=== PATIENT | male | born 1960 | race Caucasian/White ===

== ENCOUNTER 2018-01-26 14:15 | Inpatient (IN) | payer MEDICARE ==
[~2018-01-26] VITALS: Ht 175.3 cm; Wt 84.8 kg
[2018-01-26] MEDS ORDERED: PANT40TA4 PO (14:45)
[2018-01-26] MEDS ORDERED: DIPH25CA6 PO (14:45)
[2018-01-26] MEDS ORDERED: TEMA15CA PO (14:45)
[2018-01-26] MEDS ORDERED: LORA2VIA6 IM (14:45)
[2018-01-26] MEDS ORDERED: ENOX40DI SQ (14:45)
[2018-01-26] MEDS ORDERED: ACET650S11 RC (14:45)
[2018-01-26] MEDS ORDERED: NITR0.4T48 SL (14:45)
[2018-01-26] MEDS ORDERED: ACET-868 PO (14:45)
[2018-01-26] MEDS ORDERED: BISA10SU8 RC (14:45)
[2018-01-26] MEDS ORDERED: LORA0.5T PO (14:45)
[2018-01-26] MEDS ORDERED: ONDA4TAB5 PO (14:45)
[2018-01-26] MEDS ORDERED: QUET400T PO (14:45)
[2018-01-26] MEDS ORDERED: [UNRECOGNIZED DRUG - CODE] IVP (14:45)
[2018-01-26] MEDS ORDERED: ALBU1.257 IH (14:45)
[2018-01-26] MEDS ORDERED: IPRA0.2S9 IH (14:45)
[2018-01-26] MEDS ORDERED: BENZ1TAB7 PO (14:45)
[2018-01-26] MEDS ORDERED: NATE60TA PO (14:45)
[2018-01-26] MEDS ORDERED: SENN1TAB33 PO (14:45)
[2018-01-26] MEDS ORDERED: HALO5TAB8 PO (14:45)
[2018-01-26] MEDS ORDERED: CLON0.1T PO (14:45)
[2018-01-26] MEDS ORDERED: DIPH25TA62 PO (14:45)
[2018-01-26] MEDS ORDERED: ALBUTEROL HALF STRENGTH 1.25 MG/3 ML VIAL.NEB IH PRN (15:30)
[2018-01-26] MEDS ORDERED: IPRATROPIUM NEB FS 0.5 MG/2.5 ML AMPUL.NEB IH PRN (15:30)
[2018-01-26] MEDS ORDERED: CLONIDINE HCL 0.1 MG TABLET PO PRN (15:30)
[2018-01-26] MEDS ORDERED: clonazePAM 0.5 MG TABLET PO SCH (15:30)
[2018-01-26] MEDS ORDERED: MAG HYDROX/AL HYDROX/SIMETH 30 ML UDC PO PRN (15:30)
[2018-01-26] MEDS ORDERED: MAGNESIUM HYDROXIDE 30 ML UDC PO PRN (15:30)
[2018-01-26 16:00] VITALS: BP 144/83
--- NOTE | 2018-01-26 16:03 | NUR ---
Admitted a 57 years old male from [facility] on 5150 for GD.Mother reported that pt.is experiencing a psychotic episode and not sleeping all night. Mother doesn't feel safe having pt. to return home. Pt. arrived in the unit via an ambulance and transported via a gurney. Pt. is guarded upon approached, paranoid, suspicious, refused to sign the admission papers and refused skin assessment. Pt. is uncooperative on the admission process, not answering to questions being asked. Called Viji Cardenas at [phone] and she gave me some information regarding the pt. Dr. Parra made aware of the admission and gave orders. Dr. Raza made aware of the admission and reconciled the meds. Psychiatrist gave an order for 1:1 sitter.
[2018-01-26] MEDS: SENNOSIDES/DOCUSATE SODIUM 1 TAB TABLET PO SCH (17:00)
[2018-01-26] MEDS: PANTOPRAZOLE 40 MG TABLET.DR PO SCH (17:00)
[2018-01-26] MEDS: NATEGLINIDE 60 MG TABLET PO SCH (17:00)
[2018-01-26] MEDS ORDERED: ONDANSETRON 4 MG TAB.RAPDIS PO PRN (17:30)
[2018-01-26] MEDS ORDERED: diphenhydrAMINE HCL 25 MG CAPSULE PO PRN (17:30)
[2018-01-26 20:00] VITALS: BP 156/84
--- NOTE | 2018-01-26 23:15 | NUR ---
@ 0718, temazepam 1 mg tab po given for sleep.
[2018-01-26] MEDS: TEMAZEPAM 7.5 MG CAPSULE PO PRN (23:18)
[2018-01-27] MEDS: clonazePAM 0.5 MG TABLET PO PRN ×3 (01:21→20:14)
--- NOTE | 2018-01-27 01:22 | NUR ---
Clonazepam 1 mg tab po given, awake, unable to go back to sleep.
--- NOTE | 2018-01-27 05:35 | NUR ---
PATIENT WOKE UP AT THIS TIME, ASKED FOR 2 JELLO, NOTED PATIENT SMILING ALONE. NO AGGRESSIVE BEHAVIOR NOTED.
--- NOTE | 2018-01-27 07:18 | NUR ---
PT. IS CALM, COOPERATIVE, POLITE, FOLLOW DIRECTION, NO AGITATION NOTED AND 1:1 DISCONTINUED.
[2018-01-27 07:33] LABS: BASOPHILS % (AUTO) 0.5 % (0.0-2.0); EOSINOPHILS # (AUTO) 0.2 /CMM (0.0-0.7); EOSINOPHILS % (AUTO) 2.4 % (0.0-6.0); HEMATOCRIT 46 % (39-51); HEMOGLOBIN 15.5 g/dL (13.5-17.5); LYMPHOCYTES # (AUTO) 1.6 /CMM (0.8-4.8); LYMPHOCYTES % (AUTO) 18.2 % (20.0-44.0); MEAN CORPUSCULAR HEMOGLOBIN 32 PG (26.0-33.0); MEAN CORPUSCULAR HGB CONC 34 g/dl (31.0-36.0); MEAN CORPUSCULAR VOLUME 94 fL (80-96); MONOCYTES # (AUTO) 0.8 /CMM (0.1-1.30); MONOCYTES % (AUTO) 9.3 % (2.0-12.0); NEUTROPHILS % (AUTO) 69.6 % (43.0-81.0); PLATELET COUNT (AUTO) 179 /CMM (150-450); RDW COEFFICIENT OF VARIATION 13.3 (11.5-15.0); RED BLOOD CELL COUNT(AUTO) 4.89 MIL/uL (4.5-6.0); WHITE BLOOD COUNT (AUTO) 8.7 K/uL (4.3-11.0)
[2018-01-27 07:37] LABS: CHOLESTEROL 153 mg/dL (<200); HDL CHOLESTEROL 41 mg/dL (40-60); LDL 99 mg/dL (0-99); TRIGLYCERIDES 139 mg/dL (30-150)
[2018-01-27 07:55] LABS: ALBUMIN 3.3 g/dL (3.4-5.0); BILIRUBIN,TOTAL 1.7 mg/dL (0.2-1.0); CALCIUM, SERUM 9.3 mg/dL (8.5-10.1); CREATININE 1.5 mg/dL (0.6-1.3); MAGNESIUM 2.1 mg/dL (1.8-2.4); PHOSPHORUS 2.7 mg/dL (2.5-4.9); POTASSIUM 3.8 mmol/L (3.5-5.1); TOTAL PROTEIN, SERUM 7.1 g/dL (6.4-8.2)
[2018-01-27 08:00] VITALS: BP 158/78
[2018-01-27] MEDS: SENNOSIDES/DOCUSATE SODIUM 1 TAB TABLET PO SCH ×2 (08:21→18:32)
[2018-01-27] MEDS: PANTOPRAZOLE 40 MG TABLET.DR PO SCH (08:21)
[2018-01-27] MEDS: NATEGLINIDE 60 MG TABLET PO SCH ×3 (08:21→18:32)
[2018-01-27] MEDS: LISINOPRIL (10MG) 10 MG TABLET PO SCH (15:18)
[2018-01-27] MEDS: BENZTROPINE MESYLATE (1 MG) 1 MG TABLET PO SCH ×2 (15:18→18:31)
[2018-01-27] MEDS: HALOPERIDOL 5 MG TABLET PO SCH ×2 (15:19→18:32)
[2018-01-27 16:00] VITALS: BP 140/77
[2018-01-27 20:00] VITALS: BP 150/86
--- NOTE | 2018-01-27 20:14 | NUR ---
PATIENT AWAKE, ALERT, ANXIOUS, REQUESTING FOR HIS KLONOPIN, 1 MG TAB WAS ADMINISTERED. WILL MONITOR.
[2018-01-27] MEDS: TEMAZEPAM 7.5 MG CAPSULE PO PRN (23:53)
--- NOTE | 2018-01-27 23:53 | NUR ---
JUST WOKE UP FROM SLEEP, UNABLE TO GO BACK AGAIN, TEMAZEPAM 15 MG CAP PO GIVEN.
[2018-01-28 08:00] VITALS: BP 142/81
[2018-01-28] MEDS: PANTOPRAZOLE 40 MG TABLET.DR PO SCH (08:20)
[2018-01-28] MEDS: HALOPERIDOL 5 MG TABLET PO SCH ×2 (08:20→17:13)
[2018-01-28] MEDS: NATEGLINIDE 60 MG TABLET PO SCH ×3 (08:20→17:13)
[2018-01-28] MEDS: SENNOSIDES/DOCUSATE SODIUM 1 TAB TABLET PO SCH ×2 (08:20→17:13)
[2018-01-28] MEDS: BENZTROPINE MESYLATE (1 MG) 1 MG TABLET PO SCH ×2 (08:20→17:13)
[2018-01-28] MEDS: LISINOPRIL (10MG) 10 MG TABLET PO SCH (08:21)
[2018-01-28 16:04] VITALS: BP 130/82
[2018-01-28 19:42] VITALS: BP 162/90
[2018-01-28] MEDS: TEMAZEPAM 7.5 MG CAPSULE PO PRN (21:07)
--- NOTE | 2018-01-28 21:07 | NUR ---
[id number]: GAVE RESTORIL 15 MG PO DUE TO INSOMNIA UPON PT REQUEST AND WILL CONTINUE TO MONITOR FOR EFFECTIVENESS OF MEDICATION
[2018-01-29 08:00] VITALS: BP 143/93
[2018-01-29] MEDS: BENZTROPINE MESYLATE (1 MG) 1 MG TABLET PO SCH ×2 (08:09→16:26)
[2018-01-29] MEDS: NATEGLINIDE 60 MG TABLET PO SCH ×3 (08:09→16:26)
[2018-01-29] MEDS: HALOPERIDOL 5 MG TABLET PO SCH ×2 (08:10→16:26)
[2018-01-29] MEDS: LISINOPRIL (10MG) 10 MG TABLET PO SCH (08:10)
[2018-01-29] MEDS: PANTOPRAZOLE 40 MG TABLET.DR PO SCH (08:11)
[2018-01-29] MEDS: SENNOSIDES/DOCUSATE SODIUM 1 TAB TABLET PO SCH ×2 (08:11→16:26)
--- NOTE | 2018-01-29 14:09 | NUR ---
Initial Discharge Plan: Pt resides in the family home; [address] [facility] [address] with his mother (Viji Cardenas), sister (Apple) and brother (Noah). Pts telephone # is . Pt would like to move to [facility] and reported having the financial means. Pt however stated that upon discharge he would like to return to his mother's home to retrieve his belongings. SW will follow up with pts family to ensure pt is safely and properly discharged.
[2018-01-29 16:00] VITALS: BP 130/86
[2018-01-29 19:41] VITALS: BP 160/100
[2018-01-29 20:30] VITALS: BP 151/86
[2018-01-29] MEDS: TEMAZEPAM 7.5 MG CAPSULE PO PRN (21:25)
[2018-01-30] MEDS: clonazePAM 0.5 MG TABLET PO PRN ×2 (01:10→22:49)
[2018-01-30 08:00] VITALS: BP 145/89
[2018-01-30] MEDS: SENNOSIDES/DOCUSATE SODIUM 1 TAB TABLET PO SCH ×2 (08:12→16:32)
[2018-01-30] MEDS: HALOPERIDOL 5 MG TABLET PO SCH ×2 (08:13→16:32)
[2018-01-30] MEDS: PANTOPRAZOLE 40 MG TABLET.DR PO SCH (08:13)
[2018-01-30] MEDS: NATEGLINIDE 60 MG TABLET PO SCH ×3 (08:13→16:32)
[2018-01-30] MEDS: BENZTROPINE MESYLATE (1 MG) 1 MG TABLET PO SCH ×2 (08:13→16:32)
[2018-01-30] MEDS: LISINOPRIL (10MG) 10 MG TABLET PO SCH (08:14)
--- NOTE | 2018-01-30 15:46 | NUR ---
Discharge Planning: KISHOR contacted Viji Cardenas, pts mother for discharge planning purposes. SW was unable to speak to anyone; however a message was left asking for a call back. KISHOR will follow up with pts family as this will be where pt will be discharging, per pt report.
[2018-01-30 16:04] VITALS: BP 152/91
[2018-01-30 20:36] VITALS: BP 149/90
[2018-01-30] MEDS: TEMAZEPAM 7.5 MG CAPSULE PO PRN (21:53)
--- NOTE | 2018-01-30 22:50 | NUR ---
GPS RN NOTES: PATIENT NOTED TO BE YELLING AND SCREAMING AT STAFF. OBSERVE TO BE ANXIOUS THIS TIME. KLONOPIN 1 MG GIVEN PRN ORDER. WILL CONTINUE TO MONITOR PATIENT FOR MOOD, AND BEHAVIOR.
[2018-01-31] MEDS: PANTOPRAZOLE 40 MG TABLET.DR PO SCH (07:34)
[2018-01-31 08:00] VITALS: BP 160/91
[2018-01-31] MEDS: BENZTROPINE MESYLATE (1 MG) 1 MG TABLET PO SCH ×2 (08:41→16:35)
[2018-01-31] MEDS: HALOPERIDOL 5 MG TABLET PO SCH ×2 (08:41→16:35)
[2018-01-31] MEDS: LISINOPRIL (10MG) 10 MG TABLET PO SCH (08:42)
[2018-01-31] MEDS: SENNOSIDES/DOCUSATE SODIUM 1 TAB TABLET PO SCH ×2 (08:42→16:35)
[2018-01-31] MEDS: NATEGLINIDE 60 MG TABLET PO SCH ×3 (08:43→16:35)
[2018-01-31 16:00] VITALS: BP 143/90
--- NOTE | 2018-01-31 16:17 | NUR ---
Discharge Planning: SW spoke to pts mother Viji Cardenas for discharge planning purposes. SW inquired about pts return home once he is ready to discharge. Per pts mother, He could return "as long as he takes his medicine." SW inquired if there was anyone who can pick pt up once he discharges. Per mother, it would be difficult to get transportation however she would follow up with pts siblings (who live in the home). SW discussed siblings picking him up from the hospital once he is ready to discharge however, pt became angry and stated, "no, no, I don't want them to pick me up." SW will follow up.
[2018-01-31] MEDS: clonazePAM 0.5 MG TABLET PO PRN (17:07)
--- NOTE | 2018-01-31 17:07 | NUR ---
PATIENT HEARING VOICES AND GETTING ANXIOUS. CLONAZEPAM 1 MG GIVEN.
[2018-01-31 19:49] VITALS: BP 132/87
[2018-01-31] MEDS: ACETAMINOPHEN 325 MG TABLET PO PRN (21:43)
[2018-01-31] MEDS: TEMAZEPAM 7.5 MG CAPSULE PO PRN (22:24)
[2018-02-01] MEDS: clonazePAM 0.5 MG TABLET PO PRN ×2 (05:16→20:57)
--- NOTE | 2018-02-01 05:17 | NUR ---
GPS RN NOTES PATIENT C/O, ANXIOUS, REQUESTING FOR HIS KLONOPIN, 1 MG PO PRN WAS ADMINISTERED. WILL CONTINUE TO MONITOR.
[2018-02-01 08:00] VITALS: BP 162/92
[2018-02-01] MEDS: LISINOPRIL (10MG) 10 MG TABLET PO SCH (08:21)
[2018-02-01] MEDS: PANTOPRAZOLE 40 MG TABLET.DR PO SCH (08:22)
[2018-02-01] MEDS: SENNOSIDES/DOCUSATE SODIUM 1 TAB TABLET PO SCH ×2 (08:22→16:10)
[2018-02-01] MEDS: BENZTROPINE MESYLATE (1 MG) 1 MG TABLET PO SCH ×2 (08:22→16:10)
[2018-02-01] MEDS: HALOPERIDOL 5 MG TABLET PO SCH ×2 (08:22→16:10)
[2018-02-01] MEDS: NATEGLINIDE 60 MG TABLET PO SCH ×3 (08:22→16:10)
[2018-02-01 16:00] VITALS: BP 137/75
[2018-02-01 20:00] VITALS: BP 159/96
[2018-02-01] MEDS: TEMAZEPAM 7.5 MG CAPSULE PO PRN (21:39)
[2018-02-02] MEDS: clonazePAM 0.5 MG TABLET PO PRN ×2 (03:00→20:29)
[2018-02-02 07:16] LABS: ALBUMIN 3.5 g/dL (3.4-5.0); BILIRUBIN,DIRECT 0.2 mg/dL (0.0-0.2); BILIRUBIN,TOTAL 1.1 mg/dL (0.2-1.0); CALCIUM, SERUM 8.9 mg/dL (8.5-10.1); CREATININE 1.3 mg/dL (0.6-1.3); TOTAL PROTEIN, SERUM 7.2 g/dL (6.4-8.2)
[2018-02-02 07:18] LABS: BASOPHILS # (AUTO) 0.1 /CMM (0.0-0.2); BASOPHILS % (AUTO) 0.6 % (0.0-2.0); EOSINOPHILS # (AUTO) 0.1 /CMM (0.0-0.7); EOSINOPHILS % (AUTO) 0.8 % (0.0-6.0); HEMATOCRIT 45 % (39-51); HEMOGLOBIN 15.1 g/dL (13.5-17.5); LYMPHOCYTES # (AUTO) 1.8 /CMM (0.8-4.8); LYMPHOCYTES % (AUTO) 20.1 % (20.0-44.0); MEAN CORPUSCULAR HEMOGLOBIN 31 PG (26.0-33.0); MEAN CORPUSCULAR HGB CONC 34 g/dl (31.0-36.0); MEAN CORPUSCULAR VOLUME 93 fL (80-96); MONOCYTES # (AUTO) 1.1 /CMM (0.1-1.30); MONOCYTES % (AUTO) 11.9 % (2.0-12.0); NEUTROPHILS % (AUTO) 66.6 % (43.0-81.0); PLATELET COUNT (AUTO) 237 /CMM (150-450); RDW COEFFICIENT OF VARIATION 13.6 (11.5-15.0); RED BLOOD CELL COUNT(AUTO) 4.83 MIL/uL (4.5-6.0); WHITE BLOOD COUNT (AUTO) 8.9 K/uL (4.3-11.0)
[2018-02-02] MEDS: NATEGLINIDE 60 MG TABLET PO SCH ×3 (08:02→16:10)
[2018-02-02] MEDS: BENZTROPINE MESYLATE (1 MG) 1 MG TABLET PO SCH ×2 (08:02→16:10)
[2018-02-02] MEDS: SENNOSIDES/DOCUSATE SODIUM 1 TAB TABLET PO SCH ×2 (08:02→16:10)
[2018-02-02] MEDS: PANTOPRAZOLE 40 MG TABLET.DR PO SCH (08:02)
[2018-02-02] MEDS: LISINOPRIL (10MG) 10 MG TABLET PO SCH (08:03)
[2018-02-02] MEDS: HALOPERIDOL 5 MG TABLET PO SCH ×2 (08:05→16:10)
[2018-02-02 08:20] VITALS: BP 129/76
[2018-02-02 16:00] VITALS: BP 118/73
--- NOTE | 2018-02-02 16:01 | NUR ---
Discharge Planning: SW left a voicemail for patient's mother Viji Cardenas, pts mother . SW provided her direct contact information in the voicemail.
[2018-02-02 20:00] VITALS: BP 125/78
[2018-02-02] MEDS: diphenhydrAMINE HCL 25 MG CAPSULE PO PRN (20:29)
[2018-02-03] MEDS: TEMAZEPAM 7.5 MG CAPSULE PO PRN ×2 (00:43→21:50)
[2018-02-03] MEDS: clonazePAM 0.5 MG TABLET PO PRN (03:45)
[2018-02-03] MEDS: diphenhydrAMINE HCL 25 MG CAPSULE PO PRN (06:52)
[2018-02-03 08:00] VITALS: BP 139/77
[2018-02-03] MEDS: PANTOPRAZOLE 40 MG TABLET.DR PO SCH (08:46)
[2018-02-03] MEDS: BENZTROPINE MESYLATE (1 MG) 1 MG TABLET PO SCH ×2 (08:46→16:32)
[2018-02-03] MEDS: SENNOSIDES/DOCUSATE SODIUM 1 TAB TABLET PO SCH ×2 (08:46→16:32)
[2018-02-03] MEDS: HALOPERIDOL 5 MG TABLET PO SCH ×2 (08:47→16:32)
[2018-02-03] MEDS: NATEGLINIDE 60 MG TABLET PO SCH ×3 (08:47→16:32)
[2018-02-03] MEDS: LISINOPRIL (10MG) 10 MG TABLET PO SCH (08:47)
[2018-02-03] MEDS: DIVALPROEX SODIUM 250 MG TABLET.DR PO SCH ×3 (11:52→21:50)
[2018-02-03 16:00] VITALS: BP 109/67
[2018-02-03 20:00] VITALS: BP 122/69
[2018-02-04] MEDS: NATEGLINIDE 60 MG TABLET PO SCH ×3 (08:07→16:56)
[2018-02-04] MEDS: SENNOSIDES/DOCUSATE SODIUM 1 TAB TABLET PO SCH ×2 (08:07→16:56)
[2018-02-04] MEDS: LISINOPRIL (10MG) 10 MG TABLET PO SCH (08:07)
[2018-02-04] MEDS: HALOPERIDOL 5 MG TABLET PO SCH ×2 (08:07→16:57)
[2018-02-04] MEDS: BENZTROPINE MESYLATE (1 MG) 1 MG TABLET PO SCH ×2 (08:07→16:56)
[2018-02-04] MEDS: PANTOPRAZOLE 40 MG TABLET.DR PO SCH (08:07)
[2018-02-04] MEDS: DIVALPROEX SODIUM 250 MG TABLET.DR PO SCH ×2 (08:08→14:26)
[2018-02-04 08:15] VITALS: BP 141/77
[2018-02-04 16:07] VITALS: BP 149/80
[2018-02-04 19:49] VITALS: BP 156/87
[2018-02-04] MEDS ORDERED: DIVALPROEX SODIUM 500 MG TABLET.DR PO SCH (20:00)
[2018-02-04] MEDS: ACETAMINOPHEN 325 MG TABLET PO PRN (20:08)
[2018-02-04] MEDS: TEMAZEPAM 7.5 MG CAPSULE PO PRN (21:22)
[2018-02-04 23:00] VITALS: BP 137/78
--- NOTE | 2018-02-05 02:36 | NUR ---
GPS RN NOTES PT. REFUSED WEEKLY SKIN REASSESSMENT PICTURES , ENCOURAGED FOR SKIN REASSESSMENT ,EXPLIANED RISKS AND BENEFITS, PT. STILL REFUSED .
[2018-02-05 08:00] VITALS: BP 130/64
--- NOTE | 2018-02-05 08:35 | NUR ---
Discharge Planning: KISHOR spoke with patient's mother Viji Cardenas, . Viji stated that she will be able to pick patient up today at 2pm. Viji stated that she was in agreement with the discharge.
[2018-02-05] MEDS: SENNOSIDES/DOCUSATE SODIUM 1 TAB TABLET PO SCH (08:47)
[2018-02-05] MEDS: PANTOPRAZOLE 40 MG TABLET.DR PO SCH (08:47)
[2018-02-05 08:48] VITALS: BP 130/64
[2018-02-05] MEDS: HALOPERIDOL 5 MG TABLET PO SCH (08:48)
[2018-02-05] MEDS: NATEGLINIDE 60 MG TABLET PO SCH ×2 (08:48→13:25)
[2018-02-05] MEDS: DIVALPROEX SODIUM 250 MG TABLET.DR PO SCH ×2 (08:48→13:25)
[2018-02-05] MEDS: LISINOPRIL (10MG) 10 MG TABLET PO SCH (08:48)
[2018-02-05] MEDS: BENZTROPINE MESYLATE (1 MG) 1 MG TABLET PO SCH (08:49)
--- NOTE | 2018-02-05 11:06 | NUR ---
Discharge Note: Patient will be discharged home to [address] [facility]. [facility] [address]. Patient resides with mother Viji Cardenas [phone] and his siblings. Patient and his mother + family are in agreement with the discharge plan. Patients mother Mary will be picking patient up in her private vehicle. Upon discharge, patient is calm and cooperative. Patient denies suicidal and homicidal ideation. Patient denies visual and auditory hallucinations. Patient will see his psychiatrist Dr. Delatorre [address] [place] [address] [phone] on February 15 at 11:30am. Patient was also encouraged to follow up with his edge cutting machine operator, Dr. Srinivasan [address] [facility], [place] [address] [phone]. This was provided to patient.
--- NOTE | 2018-02-05 14:21 | NUR ---
GPS RN NOTE: PATIENT DISCHARGE HOME WITH HIS MOM TAIWO TANG TO [address] [place] [address] . PT IN STABLE CONDITION NO S/S DISTRESS NOTED, PT AMBULATORY STEADY GAIT , A/O X3 , COOPERATIVE COMPLIANT WITH MEDICATIONS AND TX, DENIES SI/HI, NO C/O PAIN OF DISCOMFORT, VSS WNL. DR GITA WHITTINGTON HOLD, WITH PRESCRIPTIONS EXPLAIN AND GIVEN TO PT AND MOM. Panchito MOORE NOTIFIED MEDICATIONS RECONCILIATION DONE AND GIVEN TO PT. PT INSTRUCTED TO FOLLOW UP WITH MD, TO COMPLIANT WITH MEDICATIONS AND TX. ALL BELONGINGS RETURNED TO PT.
== END 2018-02-05 14:10 | disposition home or self-care (01) | DRG 885 ==
LOC: GPS 14:15
PROVIDERS: ADMIT Psychiatry & Neurology Psychiatry; ATTEND Internal Medicine
DX: F25.0 Schizoaffective disorder, bipolar type (principal); N18.3 Chronic kidney disease, stage 3 (moderate); E11.22 Type 2 diabetes mellitus with diabetic chronic kidney disease; F23 Brief psychotic disorder; I12.9 Hypertensive chronic kidney disease with stage 1 through stage 4 chronic kidney disease, or unspecified chronic kidney disease; J44.9 Chronic obstructive pulmonary disease, unspecified; Z79.899 Other long term (current) drug therapy
CPT/HCPCS: 36415; 80048-TC; 80053-TC; 80061-TC; 80076-TC; 83735-TC; 84100-TC; 85025-TC; Q0163

== ENCOUNTER 2018-03-02 01:49 | Inpatient (IN) | payer MEDICARE ==
[~2018-03-02] VITALS: Ht 182.9 cm; Wt 80.7 kg
[~2018-03-02 01:49] MED LIST: ACET-868 PO; ACET650S11 RC; ALBU1.257 IH; BISA10SU8 RC; CLON0.1T PO; DIPH25CA6 PO; DIPH25TA62 PO; ENOX40DI SQ; IPRA0.2S9 IH; NATE60TA PO; NITR0.4T48 SL; ONDA4TAB5 PO; PANT40TA4 PO; SENN1TAB33 PO; [UNRECOGNIZED DRUG - CODE] IVP
[2018-03-02 04:15] VITALS: BP 121/74
--- NOTE | 2018-03-02 04:20 | NUR ---
ADMISSION NOTES ADMITTED THIS 57 Y/O MALE PATIENT FROM [facility] . PT IS ON 5150 HOLD FOR DTO. PER HOLD PT WAS STATING THAT HE WAS GOING TO KILL HIS SISTER, WAS HAVING AUDITORY AND VISUAL HALLUCINATIONS. PT HAS PREVIOUS PSYCHIATRIC HOSPITALIZATIONS. UPON FACE TO FACE ASSESSMENT PATIENT IS A&O X3, PARANOID, SUSPICIOUS, ANXIOUS. ADMITTING PSYCH DX OF SCHIZOPRENIA. MEDICAL DX OF DM. NO SOB, RESPIRATION EVEN AND UNLABORED, V/S WNL, NO ACUTE DISTRESS NOTED. MD AWARE AND NOTIFIED OF THE ADMISSION. SKIN ASSESSMENT DONE. PICTURES TAKEN. WOUND CONSULT TRIGGERED. ORIENT TO UNIT POLICY. ALL NEEDS ATTENDED AND ANTICIPATED. KEPT CLEAN AND DRY AT ALL TIMES. WILL CONTINUE TO MONITOR FOR Q15 MINS FOR SAFETY AND BEHAVIOR.
[2018-03-02] MEDS ORDERED: MAGNESIUM HYDROXIDE 30 ML UDC PO PRN (04:30)
[2018-03-02] MEDS ORDERED: ACETAMINOPHEN 325 MG TABLET PO PRN ×2 (04:30→12:30)
[2018-03-02] MEDS ORDERED: MAG HYDROX/AL HYDROX/SIMETH 30 ML UDC PO PRN (04:30)
[2018-03-02 05:04] VITALS: BP 121/74
--- NOTE | 2018-03-02 06:16 | NUR ---
RICHARD ATKINS (PUBLISHING MANAGER) TO RECONCILE THE MEDS. AWAITING FOR CALLBACK. WILL ENDORSE TO NEXT SHIFT NURSE FOR FOLLOW UP.
[2018-03-02 08:31] VITALS: BP 136/78
--- NOTE | 2018-03-02 10:26 | NUR ---
WOUND CARE CONSULT: JERRICA PRUITT HERE TO SEE PT. DEFER TO PLASTICS SURGICAL TEAM. CURRENT RAHEL SCORE IS 22.
--- NOTE | 2018-03-02 11:52 | NUR ---
Initial Discharge Note: Patient lives at home with his mother and sister [address] [place] [address]. . Patient would like to return home upon discharge. SW attempted to contact patient's mother Kenji Cardenas . However, she was unavailable. KISHOR left her a voicemail with her direct contact information. KISHOR will help form a safe and proper discharge.
[2018-03-02] MEDS ORDERED: INSULIN REGULAR, HUMAN 100 UNIT/ML 3 ML VIAL SQ PRN (12:30)
[2018-03-02] MEDS ORDERED: ALBUTEROL HALF STRENGTH 1.25 MG/3 ML VIAL.NEB IH PRN (12:30)
[2018-03-02] MEDS ORDERED: *INSULIN REGULAR(HUMULIN R)HUM 100 UNIT/ML VIAL SQ PRN (12:30)
[2018-03-02] MEDS ORDERED: BISACODYL SUPP (10 MG) 10 MG/SUPP.RECT SUPP.RECT RC PRN (12:30)
[2018-03-02] MEDS ORDERED: CLONIDINE HCL 0.1 MG TABLET PO PRN (12:30)
[2018-03-02] MEDS ORDERED: DEXTROSE 50%-WATER 50 ML DISP.SYRIN IV PRN (12:30)
[2018-03-02] MEDS ORDERED: diphenhydrAMINE HCL 25 MG CAPSULE PO PRN (12:30)
[2018-03-02] MEDS ORDERED: NITROGLYCERIN 0.4 MG/TAB BOTTLE SL PRN (12:30)
[2018-03-02] MEDS ORDERED: IPRATROPIUM NEB FS 0.5 MG/2.5 ML AMPUL.NEB IH PRN (12:30)
[2018-03-02] MEDS: NEOMY SULF/BACITRAC ZN/POLY 15 GM TUBE TP SCH (12:37)
[2018-03-02] MEDS ORDERED: ONDANSETRON 4 MG TAB.RAPDIS PO PRN (13:00)
[2018-03-02] MEDS: NATEGLINIDE 60 MG TABLET PO SCH ×2 (13:00→16:32)
--- NOTE | 2018-03-02 15:57 | NUR ---
RN-CO: Verified with Dr Parra if he is aware of Mr Ronald's admission. Dr said he is not aware. He ordered to transfer care to Dr Deng.
--- NOTE | 2018-03-02 16:10 | NUR ---
RN-CO: DR Deng accepted the care.
[2018-03-02] MEDS: SENNOSIDES/DOCUSATE SODIUM 1 TAB TABLET PO SCH (16:32)
[2018-03-02 16:40] VITALS: BP 131/81
[2018-03-02] MEDS: BLOOD SUGAR DIAGNOSTIC 1 EACH STRIP VI SCH ×2 (16:43→21:17)
--- NOTE | 2018-03-02 16:43 | NUR ---
[id number]: BLOOD SUGAR IS 122 MG/DL AND NO INSULIN COVERAGE REQUIRED
[2018-03-02 20:00] VITALS: BP 122/60
[2018-03-02] MEDS: DIVALPROEX SODIUM 500 MG TABLET.DR PO SCH (20:41)
[2018-03-02] MEDS: HALOPERIDOL 5 MG TABLET PO SCH (20:42)
[2018-03-03] MEDS: TEMAZEPAM 7.5 MG CAPSULE PO PRN (01:21)
[2018-03-03 07:22] LABS: BASOPHILS % (AUTO) 0.4 % (0.0-2.0); HEMATOCRIT 40 % (39-51); HEMOGLOBIN 13.6 g/dL (13.5-17.5); LYMPHOCYTES % (AUTO) 23.8 % (20.0-44.0); MEAN CORPUSCULAR HGB CONC 34 g/dl (31.0-36.0); MEAN CORPUSCULAR VOLUME 93 fL (80-96); MONOCYTES # (AUTO) 0.9 /CMM (0.1-1.30); MONOCYTES % (AUTO) 10.8 % (2.0-12.0); NEUTROPHILS # (AUTO) 5.1 /CMM (1.8-8.9); PLATELET COUNT (AUTO) 219 /CMM (150-450); RDW COEFFICIENT OF VARIATION 13.9 (11.5-15.0); RED BLOOD CELL COUNT(AUTO) 4.27 MIL/uL (4.5-6.0); WHITE BLOOD COUNT (AUTO) 8.3 K/uL (4.3-11.0)
[2018-03-03 07:33] LABS: ALBUMIN 3.2 g/dL (3.4-5.0); BILIRUBIN,TOTAL 0.9 mg/dL (0.2-1.0); CALCIUM, SERUM 8.6 mg/dL (8.5-10.1); CREATININE 0.9 mg/dL (0.6-1.3); POTASSIUM 3.7 mmol/L (3.5-5.1); TOTAL PROTEIN, SERUM 6.6 g/dL (6.4-8.2)
[2018-03-03 07:40] LABS: CHOLESTEROL 159 mg/dL (<200); HDL CHOLESTEROL 56 mg/dL (40-60); LDL 93 mg/dL (0-99); TRIGLYCERIDES 60 mg/dL (30-150)
[2018-03-03] MEDS: BLOOD SUGAR DIAGNOSTIC 1 EACH STRIP VI SCH ×2 (07:45→12:00)
[2018-03-03 08:00] VITALS: BP 100/68
[2018-03-03] MEDS: SENNOSIDES/DOCUSATE SODIUM 1 TAB TABLET PO SCH ×2 (09:22→16:05)
[2018-03-03] MEDS: HALOPERIDOL 5 MG TABLET PO SCH ×2 (09:23→20:57)
[2018-03-03] MEDS: DIVALPROEX SODIUM 500 MG TABLET.DR PO SCH ×2 (09:23→20:57)
[2018-03-03] MEDS: NATEGLINIDE 60 MG TABLET PO SCH ×3 (09:23→16:05)
[2018-03-03] MEDS: PANTOPRAZOLE 40 MG TABLET.DR PO SCH (09:23)
[2018-03-03] MEDS: NEOMY SULF/BACITRAC ZN/POLY 15 GM TUBE TP SCH (09:27)
[2018-03-03 16:00] VITALS: BP 140/78
[2018-03-03] MEDS ORDERED: BLOOD SUGAR DIAGNOSTIC 1 EACH STRIP VI PRN (17:30)
[2018-03-03 20:00] VITALS: BP 140/81
[2018-03-04] MEDS: TEMAZEPAM 7.5 MG CAPSULE PO PRN (02:09)
[2018-03-04 08:00] VITALS: BP 167/92
[2018-03-04] MEDS: PANTOPRAZOLE 40 MG TABLET.DR PO SCH (08:04)
[2018-03-04] MEDS: HALOPERIDOL 5 MG TABLET PO SCH ×2 (08:26→21:22)
[2018-03-04] MEDS: SENNOSIDES/DOCUSATE SODIUM 1 TAB TABLET PO SCH ×2 (08:26→16:42)
[2018-03-04] MEDS: NATEGLINIDE 60 MG TABLET PO SCH ×3 (08:26→16:42)
[2018-03-04] MEDS: DIVALPROEX SODIUM 500 MG TABLET.DR PO SCH ×2 (08:26→21:23)
[2018-03-04] MEDS: NEOMY SULF/BACITRAC ZN/POLY 15 GM TUBE TP SCH (09:33)
[2018-03-04 16:38] VITALS: BP 154/89
[2018-03-04 20:20] VITALS: BP 133/77
[2018-03-05] MEDS: TEMAZEPAM 7.5 MG CAPSULE PO PRN (00:48)
--- NOTE | 2018-03-05 00:53 | NUR ---
RN GPS NOTES PT. C/O INSOMNIA RESTORIL 7.5 MG PO PRN GIVEN PER PT. REQUEST, WILL CONTINUE TO MONITOR.
[2018-03-05 08:00] VITALS: BP 134/84
[2018-03-05] MEDS: PANTOPRAZOLE 40 MG TABLET.DR PO SCH (08:29)
[2018-03-05] MEDS: NATEGLINIDE 60 MG TABLET PO SCH ×3 (08:29→17:41)
[2018-03-05] MEDS: SENNOSIDES/DOCUSATE SODIUM 1 TAB TABLET PO SCH ×2 (08:29→17:40)
[2018-03-05] MEDS: HALOPERIDOL 5 MG TABLET PO SCH ×2 (08:29→20:48)
[2018-03-05] MEDS: DIVALPROEX SODIUM 500 MG TABLET.DR PO SCH ×2 (08:29→20:47)
[2018-03-05] MEDS: NEOMY SULF/BACITRAC ZN/POLY 15 GM TUBE TP SCH (10:26)
[2018-03-05 16:00] VITALS: BP 147/86
--- NOTE | 2018-03-05 16:15 | NUR ---
Initial Discharge Plan: Pt resides at [address] [facility] [address]; with his mother, Viji and sister, Apple. Upon discharge pt would like to return home, SW followed up with pts mother, Viji for discharge planning purposes however was unable to speak to her; a message was left asking for a callback. KISHOR will follow up to ensure pt is safely and adequately discharged.
[2018-03-05 19:52] VITALS: BP 147/80
[2018-03-06 08:00] VITALS: BP 148/90
[2018-03-06] MEDS: DIVALPROEX SODIUM 500 MG TABLET.DR PO SCH ×2 (08:47→21:16)
[2018-03-06] MEDS: SENNOSIDES/DOCUSATE SODIUM 1 TAB TABLET PO SCH ×2 (08:47→17:05)
[2018-03-06] MEDS: PANTOPRAZOLE 40 MG TABLET.DR PO SCH (08:47)
[2018-03-06] MEDS: HALOPERIDOL 5 MG TABLET PO SCH ×2 (08:48→21:17)
[2018-03-06] MEDS: NATEGLINIDE 60 MG TABLET PO SCH ×3 (08:48→17:05)
[2018-03-06] MEDS: NEOMY SULF/BACITRAC ZN/POLY 15 GM TUBE TP SCH (09:00)
[2018-03-06 16:00] VITALS: BP 158/96
--- NOTE | 2018-03-06 16:38 | NUR ---
Discharge Planning: KISHOR contacted pts mother Viji, for discharge planning purposes. SW left a message asking for a callback. KISHOR will follow up.
--- NOTE | 2018-03-06 16:40 | NUR ---
Discharge Planning: Pt handed SW the hand held phone stating that his sister was on the phone. When SW answered the phone and introduced herself, pts sister stated "He can stay there more days" and hung up. SW will follow up to ensure pt is safely and adequately discharged.
[2018-03-06 20:13] VITALS: BP 125/70
[2018-03-07 08:00] VITALS: BP 133/76
--- NOTE | 2018-03-07 08:20 | NUR ---
Patients brother Adolph Cardenas contacted SW to inform her that brother cannot go home and also stated to SW that pt has refused to talk to him over the phone. SW asked brother if there was any family that could assist with pts discharge planning and brother stated that pt was not cooperative with family therefore, no one was available to assist him. Pts brother mentioned to SW that if discharged to a skilled nursing pt would not go and make his way back home where he cannot stay. SW mentioned to pts brother that she would inform psychiatrist of this information.
--- NOTE | 2018-03-07 08:25 | NUR ---
SW note [place]: Pt informed SW on 03/07/18 at 4:25pm that he was going to kill his brother Adolph Cardenas. SW immediately informed supervisor poultry processing Mary Lou Ibarra and Dr. Bermudez. SW will also be informing pts brother Adolph Cardenas per [place] law.
[2018-03-07] MEDS: NEOMY SULF/BACITRAC ZN/POLY 15 GM TUBE TP SCH (09:00)
[2018-03-07] MEDS: HALOPERIDOL 5 MG TABLET PO SCH ×2 (09:05→21:42)
[2018-03-07] MEDS: PANTOPRAZOLE 40 MG TABLET.DR PO SCH (09:06)
[2018-03-07] MEDS: DIVALPROEX SODIUM 500 MG TABLET.DR PO SCH ×2 (09:06→21:42)
[2018-03-07] MEDS: SENNOSIDES/DOCUSATE SODIUM 1 TAB TABLET PO SCH ×2 (09:06→16:41)
[2018-03-07] MEDS: NATEGLINIDE 60 MG TABLET PO SCH ×3 (09:07→16:41)
[2018-03-07 16:00] VITALS: BP 135/72
--- NOTE | 2018-03-07 16:02 | NUR ---
SW contacted pts motherViji for discharge planning purposes per psychiatrists request.
--- NOTE | 2018-03-07 19:30 | NUR ---
GPS RN NOTE, RECEIVED PATIENT AWAKE AND IN BED, PATIENT HAS NO COMPLAINTS OR S/S OF PAIN AT THIS TIME. PATIENT IS DISPLAYING NO S/S OF APPARENT DISTRESS AT THIS TIME. PATIENT BREATHING IS UNLABORED WITH EQUAL RISE AND FALL OF THE CHEST. PATIENT IS ALERT AND ORIENTED X 3 ON ROOM AIR WITH A SPO2 OF 96%. PATIENT IS COMPLIANT WITH MEDICATION, ANXIOUS AT TIMES, PARANOID, COOPERATIVE, HAS VISUAL HALLUCINATIONS AT TIMES, AND NEEDS REORIENTATION. PATIENT DENIES SUICIDE IDEATIONS AND HOMICIDAL IDEATIONS AT THIS TIME. PATIENT ASSISTED WITH TURNING AND REPOSITIONING Q2HR AND PRN FOR COMFORT AND CIRCULATION. PATIENT HAS NO NEEDS AT THIS TIME. PATIENT EDUCATED ON THE USE OF THE CALL MURILLO. PATIENT SIDE RAILS ARE UP X 2, BED IS LOCKED AND LOW, AND I WILL CONTINUE TO MONITOR THIS PATIENT Q 15 MIN WITH THE HELP OF STAFF.
[2018-03-07 20:00] VITALS: BP 134/82
[2018-03-07] MEDS: clonazePAM 0.5 MG TABLET PO PRN (20:37)
--- NOTE | 2018-03-07 20:37 | NUR ---
GPS RN NOTE, PATIENT HAS A COMPLAINT OF FEELING ANXIOUS AND IS REQUESTING KLONOPIN AT THIS TIME. PATIENT VITAL SIGNS ARE STABLE. GAVE KLONOPIN 0.5MG PO Q4HR PRN ORDERED. WILL REASSESS FOR ANXIETY AND I WILL CONTINUE TO MONITOR THIS PATIENT.
[2018-03-08] MEDS: clonazePAM 0.5 MG TABLET PO PRN (02:19)
[2018-03-08 08:05] VITALS: BP 132/78
[2018-03-08] MEDS: HALOPERIDOL 5 MG TABLET PO SCH ×2 (08:30→21:01)
[2018-03-08] MEDS: PANTOPRAZOLE 40 MG TABLET.DR PO SCH (08:31)
[2018-03-08] MEDS: DIVALPROEX SODIUM 500 MG TABLET.DR PO SCH ×2 (08:31→21:01)
[2018-03-08] MEDS: SENNOSIDES/DOCUSATE SODIUM 1 TAB TABLET PO SCH ×2 (08:31→16:45)
[2018-03-08] MEDS: NATEGLINIDE 60 MG TABLET PO SCH ×3 (08:34→16:45)
[2018-03-08] MEDS: NEOMY SULF/BACITRAC ZN/POLY 15 GM TUBE TP SCH (08:35)
[2018-03-08 16:34] VITALS: BP 124/70
[2018-03-08 20:00] VITALS: BP 113/64
[2018-03-08] MEDS: TEMAZEPAM 7.5 MG CAPSULE PO PRN (21:02)
[2018-03-09] MEDS: clonazePAM 0.5 MG TABLET PO PRN ×3 (00:48→20:37)
--- NOTE | 2018-03-09 00:51 | NUR ---
PATIENT REQUESTED FOR HIS KLONOPIN 0.5 MG, 1 PO GIVEN.
--- NOTE | 2018-03-09 04:45 | NUR ---
KLONOPIN 0.5 MG ATB 1 PO GIVEN PER PATIENT'S REQUEST, FEELING ANXIOUS AND JITTERY.
[2018-03-09 08:00] VITALS: BP 127/85
[2018-03-09] MEDS: SENNOSIDES/DOCUSATE SODIUM 1 TAB TABLET PO SCH ×2 (08:52→16:33)
[2018-03-09] MEDS: DIVALPROEX SODIUM 500 MG TABLET.DR PO SCH ×2 (08:52→20:36)
[2018-03-09] MEDS: PANTOPRAZOLE 40 MG TABLET.DR PO SCH (08:52)
[2018-03-09] MEDS: HALOPERIDOL 5 MG TABLET PO SCH ×2 (08:52→20:36)
[2018-03-09] MEDS: NATEGLINIDE 60 MG TABLET PO SCH ×3 (08:52→16:33)
[2018-03-09] MEDS: NEOMY SULF/BACITRAC ZN/POLY 15 GM TUBE TP SCH (08:55)
[2018-03-09 16:00] VITALS: BP 141/76
[2018-03-09 20:00] VITALS: BP 116/71
--- NOTE | 2018-03-09 20:51 | NUR ---
KLONOPIN 0.5 MT TAB PO GIVEN, BECOMING AGGRESSIVE LIKE WANTING TO GIFHT, HE STATED, " IT IS JUST MY NATURE."
[2018-03-10] MEDS: clonazePAM 0.5 MG TABLET PO PRN (03:17)
--- NOTE | 2018-03-10 03:18 | NUR ---
KLONOPIN 0.5 MG TAB 1 PO GIVEN., PATIENT FEELING ANXIOUS.
[2018-03-10 08:00] VITALS: BP 138/77
[2018-03-10] MEDS: DIVALPROEX SODIUM 500 MG TABLET.DR PO SCH ×2 (08:21→20:58)
[2018-03-10] MEDS: HALOPERIDOL 5 MG TABLET PO SCH ×2 (08:21→20:59)
[2018-03-10] MEDS: SENNOSIDES/DOCUSATE SODIUM 1 TAB TABLET PO SCH ×2 (08:21→16:51)
[2018-03-10] MEDS: NATEGLINIDE 60 MG TABLET PO SCH ×3 (08:21→16:51)
[2018-03-10] MEDS: PANTOPRAZOLE 40 MG TABLET.DR PO SCH (08:21)
[2018-03-10] MEDS: NEOMY SULF/BACITRAC ZN/POLY 15 GM TUBE TP SCH (08:21)
[2018-03-10 16:00] VITALS: BP 140/86
[2018-03-10 20:00] VITALS: BP 132/73
[2018-03-11] MEDS: clonazePAM 0.5 MG TABLET PO PRN ×2 (00:02→04:03)
[2018-03-11 08:09] VITALS: BP 149/80
[2018-03-11] MEDS: PANTOPRAZOLE 40 MG TABLET.DR PO SCH (08:24)
[2018-03-11] MEDS: SENNOSIDES/DOCUSATE SODIUM 1 TAB TABLET PO SCH ×2 (08:25→16:55)
[2018-03-11] MEDS: DIVALPROEX SODIUM 500 MG TABLET.DR PO SCH ×2 (08:25→21:38)
[2018-03-11] MEDS: NATEGLINIDE 60 MG TABLET PO SCH ×3 (08:25→16:55)
[2018-03-11] MEDS: HALOPERIDOL 5 MG TABLET PO SCH ×2 (08:26→21:38)
[2018-03-11] MEDS: NEOMY SULF/BACITRAC ZN/POLY 15 GM TUBE TP SCH (10:33)
[2018-03-11 16:00] VITALS: BP 149/78
[2018-03-11 19:41] VITALS: BP 160/97
[2018-03-11 22:36] VITALS: BP 128/61
[2018-03-12] MEDS: clonazePAM 0.5 MG TABLET PO PRN ×2 (00:30→05:48)
[2018-03-12 08:00] VITALS: BP 131/89
[2018-03-12] MEDS: DIVALPROEX SODIUM 500 MG TABLET.DR PO SCH ×2 (08:50→21:36)
[2018-03-12] MEDS: SENNOSIDES/DOCUSATE SODIUM 1 TAB TABLET PO SCH ×2 (08:50→16:02)
[2018-03-12] MEDS: NATEGLINIDE 60 MG TABLET PO SCH ×3 (08:50→16:02)
[2018-03-12] MEDS: PANTOPRAZOLE 40 MG TABLET.DR PO SCH (08:51)
[2018-03-12] MEDS: HALOPERIDOL 5 MG TABLET PO SCH ×2 (08:51→21:37)
[2018-03-12] MEDS ORDERED: CARBAMIDE PEROXIDE OTIC 15 ML BOTTLE EACH EAR ONE (09:00)
--- NOTE | 2018-03-12 10:44 | NUR ---
SW was informed by pt that he spoke to his mother over the weekend and that she was in agreement with him returning home. KISHOR contacted pts mother Viji Cardenas (with pt in the room) to inquire about pts report. Per mother, pt can return home, "as long as he takes his medicine and he sees his Kennel Technician in [facility]." SW inquired about mother's change of mind in allowing pt to return home. Per mother, she asked pts brother, Noah to leave the home in order for pt to return home. Per mother the only other person, besides her, residing in the home is her other daughter Apple. SW confirmed pts address of discharge ([address] [place] [address]). Per mother, "I asked Noah to leave so pt can return home." KISHOR informed, Mary Lou Ibarra Pharmacy Technician of recent events as well. KISHOR will consult with psychiatrist for treatment planning purposes.
[2018-03-12] MEDS: NEOMY SULF/BACITRAC ZN/POLY 15 GM TUBE TP SCH (11:37)
[2018-03-12 15:52] VITALS: BP 135/93
[2018-03-12 19:42] VITALS: BP 132/69
[2018-03-13] MEDS: NATEGLINIDE 60 MG TABLET PO SCH ×2 (07:53→13:39)
[2018-03-13] MEDS: PANTOPRAZOLE 40 MG TABLET.DR PO SCH (07:54)
[2018-03-13] MEDS: SENNOSIDES/DOCUSATE SODIUM 1 TAB TABLET PO SCH (07:54)
[2018-03-13 08:00] VITALS: BP 143/95
[2018-03-13] MEDS: DIVALPROEX SODIUM 500 MG TABLET.DR PO SCH (08:17)
[2018-03-13] MEDS: HALOPERIDOL 5 MG TABLET PO SCH (08:17)
[2018-03-13] MEDS: NEOMY SULF/BACITRAC ZN/POLY 15 GM TUBE TP SCH (08:18)
--- NOTE | 2018-03-13 13:13 | NUR ---
RN NOTE: PATIENT LEFT THE UNIT AT 1310. PATIENT WAS PICKED UP BY MOTHER. MOTHER SIGNED CONTINUING CARE PAPER WORK. PATIENT IS MEDICALLY STABLE. DENIES SI/HI DURING DISCHARGE. DENIES VH/AH/COMMAND HALLUCINATIONS. PAMELA ORDERED DISCHARGE, DISCONTINUE HOLD, AND RECONCILED MEDS. MARGIE MADE AWARE OF DISCHARGE. PATIENT SIGNED EXIT CARE PAPERS. BELONGINGS GIVEN TO PATIENT AT TIME OF DISCHARGE. EXIT CARE PAPERS EXPLAINED TO PATIENT DURING DISCHARGE. PATIENT REFUSED SKIN ASSESSMENT.
--- NOTE | 2018-03-16 15:40 | NUR ---
Discharge Plan 03/13/18: Pt will discharge home; [address] [place] [address]; via private transportation at 10:00 am. Pt and pts mother Viji have been notified and are in agreement. Per pt his mother will be picking him up. Pt was referred to the following doctors for aftercare: Psychiatrist: Dr. Bolanos, [address] [address]; ([phone]) and Stacker Tender: Dr. Mauri Srinivasan, [address] [facility] [address]; ([phone]).
== END 2018-03-13 13:10 | disposition home or self-care (01) | DRG 885 ==
LOC: GPS 03:57
PROVIDERS: ADMIT Psychiatry & Neurology Psychiatry; ATTEND Psychiatry & Neurology Psychiatry
DX: F20.0 Paranoid schizophrenia (principal); N18.9 Chronic kidney disease, unspecified; E11.22 Type 2 diabetes mellitus with diabetic chronic kidney disease; E11.42 Type 2 diabetes mellitus with diabetic polyneuropathy; L97.929 Non-pressure chronic ulcer of unspecified part of left lower leg with unspecified severity; E11.621 Type 2 diabetes mellitus with foot ulcer; F29 Unspecified psychosis not due to a substance or known physiological condition; F12.10 Cannabis abuse, uncomplicated; F41.9 Anxiety disorder, unspecified; S90.821A Blister (nonthermal), right foot, initial encounter; X58.XXXA Exposure to other specified factors, initial encounter; Y92.9 Unspecified place or not applicable; S80.812A Abrasion, left lower leg, initial encounter; S80.811A Abrasion, right lower leg, initial encounter; I12.9 Hypertensive chronic kidney disease with stage 1 through stage 4 chronic kidney disease, or unspecified chronic kidney disease; Z91.14 Patient's other noncompliance with medication regimen; Y93.55 Activity, bike riding; Z81.8 Family history of other mental and behavioral disorders; F17.200 Nicotine dependence, unspecified, uncomplicated; K21.9 Gastro-esophageal reflux disease without esophagitis; J44.9 Chronic obstructive pulmonary disease, unspecified; Z73.6 Limitation of activities due to disability
CPT/HCPCS: 36415; 80053-TC; 80061-TC; 80164-TC; 82962-TC; 85025-TC; 87081-TC; A6402; J1815; Z7610

== ENCOUNTER 2018-04-10 18:28 | Inpatient (IN) | payer MEDICARE ==
[~2018-04-10] VITALS: Ht 180.3 cm; Wt 81.6 kg
--- NOTE | 2018-04-10 19:00 | NUR ---
GPS BUTT MAKER NOTES: ADMITTED A 57YO MALE FROM HOME ON 5150 HOLD FOR DANGER TO OTHERS AND GRAVE DISABILITY. PER HOLD THE PATIENT WAS YELLING AND CURSING AT ELDERLY MOTHER, PATIENT STAYING UP ALL NIGHTS STARING AT THE LIGHTS, MESSING WITH ELECTRICAL WIRES, HAVING PHYSICAL ALTERCATIONS WITH SISTER AT HOME. PATIENT INITIALLY CAME AT 1800 AND RECEIVED BY DAY SHIFT STAFF, CONTRABAND AND BELONGINGS DONE BY DAY SHIFT CREW. UPON FACE TO FACE EVALUATION, PATIENT PRESENTS ALERT AND ORIENTED X2-3.HE APPEARS UNKEMPT, DISHEVELED, LABILE, GUARDED AND UNPREDICTABLE. PATIENT WAS LOOKING ALL TIRED AND SLEEPY AND REFUSED TO ANSWER ASSESSMENT QUESTIONS. PATIENT PROVIDED WITH SNACKS AND ORAL FLUIDS TOLERATED. SAFETY AND FALL PRECAUTIONS OBSERVED. Q15 MIN CHECKS AND CARE PLAN INITIATED. PATIENT HAS BEEN CONFINED HERE LAST MONTH, REORIENTATION TO UNIT, STAFF, POLICIES AND DOCTORS DONE. MED RECON DONE BY NIKKI MOORE. WILL MONITOR PATIENT FOR MOOD, SAFETY AND BEHAVIOR.
[2018-04-10 20:00] VITALS: BP 126/73
[2018-04-10] MEDS ORDERED: MAGNESIUM HYDROXIDE 30 ML UDC PO PRN (21:00)
[2018-04-10] MEDS ORDERED: MAG HYDROX/AL HYDROX/SIMETH 30 ML UDC PO PRN (21:00)
[2018-04-10] MEDS ORDERED: LORAZEPAM 0.5 MG TABLET PO PRN (21:00)
[2018-04-10] MEDS ORDERED: NITROGLYCERIN 0.4 MG/TAB BOTTLE SL PRN (23:00)
[2018-04-10] MEDS ORDERED: ACETAMINOPHEN 325 MG TABLET PO PRN (23:00)
[2018-04-10] MEDS ORDERED: IPRATROPIUM NEB FS 0.5 MG/2.5 ML AMPUL.NEB IH PRN (23:00)
[2018-04-10] MEDS ORDERED: diphenhydrAMINE HCL 25 MG CAPSULE PO PRN (23:00)
[2018-04-10] MEDS ORDERED: ACETAMINOPHEN 650 MG/SUPP.RECT RC PRN (23:00)
[2018-04-10] MEDS ORDERED: CLONIDINE HCL 0.1 MG TABLET PO PRN (23:00)
[2018-04-10] MEDS ORDERED: DIPHENHYDRAMINE HCL 12.5 MG/5 ML UDC PO PRN (23:00)
[2018-04-10] MEDS ORDERED: ONDANSETRON 4 MG TAB.RAPDIS SL PRN (23:00)
[2018-04-10] MEDS ORDERED: ALBUTEROL HALF STRENGTH 1.25 MG/3 ML VIAL.NEB IH PRN (23:00)
[2018-04-10] MEDS ORDERED: BISACODYL SUPP (10 MG) 10 MG/SUPP.RECT SUPP.RECT RC PRN (23:00)
--- NOTE | 2018-04-11 06:00 | NUR ---
GPS RN NOTES: PATIENT REFUSED FULL SKIN AND BODY ASSESSMENT. PER PATIENT, HE CLAIMS THAT HIS SKIN IS CLEAR AND THAT THE LAST TIME HE WAS ADMITTED HERE WAS THE TIME THAT HE HAD THE SKIN PROBLEMS.
[2018-04-11 07:41] LABS: CREATININE 0.9 mg/dL (0.6-1.3)
[2018-04-11 07:49] LABS: CHOLESTEROL 200 mg/dL (<200); HDL CHOLESTEROL 65 mg/dL (40-60); LDL 122 mg/dL (0-99); TRIGLYCERIDES 99 mg/dL (30-150)
[2018-04-11 08:00] VITALS: BP 145/84
[2018-04-11] MEDS: NATEGLINIDE 60 MG TABLET PO SCH ×3 (08:35→16:53)
[2018-04-11] MEDS: SENNOSIDES/DOCUSATE SODIUM 1 TAB TABLET PO SCH ×2 (08:35→16:52)
[2018-04-11] MEDS: PANTOPRAZOLE 40 MG TABLET.DR PO SCH (08:36)
[2018-04-11] MEDS: ENOXAPARIN SODIUM 40 MG/0.4 ML DISP.SYRIN SQ SCH (09:00)
[2018-04-11 16:00] VITALS: BP 141/92
[2018-04-11 20:22] VITALS: BP 149/89
[2018-04-11] MEDS: DIVALPROEX SODIUM 500 MG TABLET.DR PO SCH (21:31)
[2018-04-11] MEDS: BENZTROPINE MESYLATE (1 MG) 1 MG TABLET PO SCH (21:32)
[2018-04-11] MEDS: HALOPERIDOL 5 MG TABLET PO SCH (21:32)
[2018-04-12 08:00] VITALS: BP 148/77
[2018-04-12] MEDS: BENZTROPINE MESYLATE (1 MG) 1 MG TABLET PO SCH ×2 (08:55→20:06)
[2018-04-12] MEDS: PANTOPRAZOLE 40 MG TABLET.DR PO SCH (08:55)
[2018-04-12] MEDS: SENNOSIDES/DOCUSATE SODIUM 1 TAB TABLET PO SCH ×2 (08:55→16:48)
[2018-04-12] MEDS: NATEGLINIDE 60 MG TABLET PO SCH ×3 (08:55→16:49)
[2018-04-12] MEDS: HALOPERIDOL 5 MG TABLET PO SCH ×2 (08:56→20:06)
[2018-04-12] MEDS: DIVALPROEX SODIUM 500 MG TABLET.DR PO SCH ×2 (08:56→20:06)
[2018-04-12] MEDS: ENOXAPARIN SODIUM 40 MG/0.4 ML DISP.SYRIN SQ SCH (09:00)
[2018-04-12 16:00] VITALS: BP 128/75
[2018-04-12 20:00] VITALS: BP 120/70
[2018-04-13 07:42] VITALS: BP 129/73
[2018-04-13] MEDS: NATEGLINIDE 60 MG TABLET PO SCH ×3 (08:45→16:54)
[2018-04-13] MEDS: SENNOSIDES/DOCUSATE SODIUM 1 TAB TABLET PO SCH ×2 (08:45→16:54)
[2018-04-13] MEDS: HALOPERIDOL 5 MG TABLET PO SCH ×2 (08:45→20:54)
[2018-04-13] MEDS: DIVALPROEX SODIUM 500 MG TABLET.DR PO SCH ×2 (08:45→20:55)
[2018-04-13] MEDS: PANTOPRAZOLE 40 MG TABLET.DR PO SCH (08:45)
[2018-04-13] MEDS: BENZTROPINE MESYLATE (1 MG) 1 MG TABLET PO SCH ×2 (08:45→20:55)
[2018-04-13] MEDS: ENOXAPARIN SODIUM 40 MG/0.4 ML DISP.SYRIN SQ SCH (08:47)
--- NOTE | 2018-04-13 12:25 | NUR ---
Initial Discharge Plan: Pt is a 57 yr old male on a 5150- hold. Per report, pt was brought in by mother who reports that pt has not been sleeping, has been cursing and yelling at elderly mother. Pt reports that he is staying up all night staring at the lights, rearranging everything, messing with electrical wires (per mom). Pt reports that his sister wants to kill him and that he will knock her teeth out "hit her" when mother reports that sister stays in her room when home. Mother reports that he has been cursing and yelling at mom. Mo. flinched when pt yelled at her when being assessed.
[2018-04-13 15:35] VITALS: BP_SYST 125; BP_SYST 140; BP_DIAS 77; BP_DIAS 96
[2018-04-13 20:00] VITALS: BP 136/74
--- NOTE | 2018-04-13 21:13 | NUR ---
GPS RN NOTE PATIENT HAS A COMPLAINT OF FEELING ANXIOUS AND IS REQUESTING KLONOPIN AT THIS TIME. PATIENT ONLY HAS ATIVAN 0.5MG PO Q6HR PRN ORDERED BUT PATIENT IS REFUSING THIS MEDICATION STATING, " IT MAKES ME HYPER I RATHER HAVE KLONOPIN. PAGED DR SANTIAGO AND INFORMED HIM OF MY FINDINGS. DR SANTIAGO ORDERED TO STOP GIVING ATIVAN 0.5MG PO Q6HR PRN AND TO GIVE KLONOPIN 0.5MG PO Q4HR PRN. ALL ORDERS NOTED AND CARRIED OUT WILL CONTINUE TO MONITOR THIS PATIENT.
[2018-04-14] MEDS: TEMAZEPAM 7.5 MG CAPSULE PO PRN ×2 (01:20→23:57)
[2018-04-14] MEDS: clonazePAM 0.5 MG TABLET PO PRN (02:26)
--- NOTE | 2018-04-14 02:26 | NUR ---
GPS RN NOTE, PATIENT HAS A COMPLAINT OF FEELING ANXIOUS AND IS REQUESTING KLONOPIN AT THIS TIME. PATIENT VITAL SIGNS ARE STABLE. GAVE KLONOPIN 0.5 MG PO Q4HR PRN ORDERED. WILL REASSESS FOR ANXIETY AND I WILL CONTINUE TO MONITOR THIS PATIENT.
[2018-04-14 08:00] VITALS: BP 134/79
[2018-04-14] MEDS: NATEGLINIDE 60 MG TABLET PO SCH ×3 (08:20→17:08)
[2018-04-14] MEDS: DIVALPROEX SODIUM 500 MG TABLET.DR PO SCH ×2 (08:21→20:58)
[2018-04-14] MEDS: BENZTROPINE MESYLATE (1 MG) 1 MG TABLET PO SCH ×2 (08:21→20:58)
[2018-04-14] MEDS: HALOPERIDOL 5 MG TABLET PO SCH ×2 (08:21→20:59)
[2018-04-14] MEDS: PANTOPRAZOLE 40 MG TABLET.DR PO SCH (08:22)
[2018-04-14] MEDS: SENNOSIDES/DOCUSATE SODIUM 1 TAB TABLET PO SCH ×2 (08:23→17:08)
[2018-04-14] MEDS: ENOXAPARIN SODIUM 40 MG/0.4 ML DISP.SYRIN SQ SCH (08:24)
[2018-04-14 16:04] VITALS: BP 132/76
[2018-04-14 20:00] VITALS: BP 127/84
[2018-04-15] MEDS: clonazePAM 0.5 MG TABLET PO PRN (01:43)
--- NOTE | 2018-04-15 01:43 | NUR ---
GPS RN NOTE, PATIENT HAS A COMPLAINT OF FEELING ANXIOUS AND IS REQUESTING KLONOPIN AT THIS TIME. PATIENT VITAL SIGNS ARE STABLE. GAVE KLONOPIN 0.5MG PO Q4HR PRN ORDERED. WILL REASSESS ANXIETY AND I WILL CONTINUE TO MONITOR THIS PATIENT.
[2018-04-15 08:00] VITALS: BP 139/82
[2018-04-15] MEDS: HALOPERIDOL 5 MG TABLET PO SCH ×2 (08:12→21:10)
[2018-04-15] MEDS: PANTOPRAZOLE 40 MG TABLET.DR PO SCH (08:12)
[2018-04-15] MEDS: SENNOSIDES/DOCUSATE SODIUM 1 TAB TABLET PO SCH ×2 (08:13→16:07)
[2018-04-15] MEDS: DIVALPROEX SODIUM 500 MG TABLET.DR PO SCH ×2 (08:13→21:10)
[2018-04-15] MEDS: BENZTROPINE MESYLATE (1 MG) 1 MG TABLET PO SCH ×2 (08:15→21:10)
[2018-04-15] MEDS: NATEGLINIDE 60 MG TABLET PO SCH ×3 (08:15→16:07)
[2018-04-15] MEDS: ENOXAPARIN SODIUM 40 MG/0.4 ML DISP.SYRIN SQ SCH (08:17)
[2018-04-15] MEDS: ACETAMINOPHEN 325 MG TABLET PO PRN (14:56)
[2018-04-15 16:13] VITALS: BP 121/64
[2018-04-15 20:01] VITALS: BP 128/78
[2018-04-16] MEDS: clonazePAM 0.5 MG TABLET PO PRN (00:43)
[2018-04-16 06:58] LABS: BASOPHILS % (AUTO) 0.7 % (0.0-2.0); EOSINOPHILS % (AUTO) 4.7 % (0.0-6.0); HEMATOCRIT 43 % (39-51); HEMOGLOBIN 14.5 g/dL (13.5-17.5); LYMPHOCYTES # (AUTO) 1.6 /CMM (0.8-4.8); LYMPHOCYTES % (AUTO) 28.6 % (20.0-44.0); MEAN CORPUSCULAR HGB CONC 34 g/dl (31.0-36.0); MEAN CORPUSCULAR VOLUME 94 fL (80-96); MONOCYTES # (AUTO) 0.6 /CMM (0.1-1.30); MONOCYTES % (AUTO) 10.7 % (2.0-12.0); NEUTROPHILS # (AUTO) 3.1 /CMM (1.8-8.9); NEUTROPHILS % (AUTO) 55.3 % (43.0-81.0); PLATELET COUNT (AUTO) 196 /CMM (150-450); RDW COEFFICIENT OF VARIATION 14.6 (11.5-15.0); RED BLOOD CELL COUNT(AUTO) 4.53 MIL/uL (4.5-6.0); WHITE BLOOD COUNT (AUTO) 5.5 K/uL (4.3-11.0)
[2018-04-16 07:12] LABS: CALCIUM, SERUM 8.9 mg/dL (8.5-10.1); MAGNESIUM 2.1 mg/dL (1.8-2.4); PHOSPHORUS 3.1 mg/dL (2.5-4.9); POTASSIUM 4.3 mmol/L (3.5-5.1)
[2018-04-16 08:00] VITALS: BP 141/76
[2018-04-16] MEDS: PANTOPRAZOLE 40 MG TABLET.DR PO SCH (08:31)
[2018-04-16] MEDS: NATEGLINIDE 60 MG TABLET PO SCH ×3 (08:31→16:23)
[2018-04-16] MEDS: DIVALPROEX SODIUM 500 MG TABLET.DR PO SCH ×2 (08:31→20:47)
[2018-04-16] MEDS: SENNOSIDES/DOCUSATE SODIUM 1 TAB TABLET PO SCH ×2 (08:31→16:23)
[2018-04-16] MEDS: BENZTROPINE MESYLATE (1 MG) 1 MG TABLET PO SCH ×2 (08:32→20:47)
[2018-04-16] MEDS: ENOXAPARIN SODIUM 40 MG/0.4 ML DISP.SYRIN SQ SCH (08:32)
[2018-04-16] MEDS: HALOPERIDOL 5 MG TABLET PO SCH ×2 (09:07→20:51)
[2018-04-16 16:00] VITALS: BP 135/80
[2018-04-16 19:30] VITALS: BP 118/73
[2018-04-17] MEDS: clonazePAM 0.5 MG TABLET PO PRN ×3 (00:35→22:51)
[2018-04-17] MEDS: TEMAZEPAM 7.5 MG CAPSULE PO PRN (02:34)
[2018-04-17 08:00] VITALS: BP 129/84
[2018-04-17] MEDS: PANTOPRAZOLE 40 MG TABLET.DR PO SCH (08:59)
[2018-04-17] MEDS: SENNOSIDES/DOCUSATE SODIUM 1 TAB TABLET PO SCH ×2 (09:00→17:03)
[2018-04-17] MEDS: NATEGLINIDE 60 MG TABLET PO SCH ×3 (09:00→16:58)
[2018-04-17] MEDS: BENZTROPINE MESYLATE (1 MG) 1 MG TABLET PO SCH ×2 (09:00→20:55)
[2018-04-17] MEDS: DIVALPROEX SODIUM 500 MG TABLET.DR PO SCH ×2 (09:00→20:54)
[2018-04-17] MEDS: HALOPERIDOL 5 MG TABLET PO SCH ×2 (09:00→20:55)
[2018-04-17] MEDS: ENOXAPARIN SODIUM 40 MG/0.4 ML DISP.SYRIN SQ SCH (09:00)
[2018-04-17 16:00] VITALS: BP 138/81
--- NOTE | 2018-04-17 19:16 | NUR ---
GPS/RN OPENING NOTES PATIENT IN BED, ALERT, ORIENTED X2, RESTING COMFORTABLY IN BED, MONITORING FOR ANY S/S OF BEHAVIOR , RECEIVED REPORT FOR JORGE THAT PATIENT IS COMPLIANT WITH MEDICATION REGIMEN, WILL CONTINUE TO MONITOR.KEEP BED LOCK AND PROVIDE NEEDED CARE.
[2018-04-17 20:00] VITALS: BP 114/61
[2018-04-17] MEDS: ACETAMINOPHEN 325 MG TABLET PO PRN (20:13)
--- NOTE | 2018-04-17 20:14 | NUR ---
REPORTED HEADACHE BY PATIENT TYLENOL 650MG PO GIVEN WILL MONITOR EFFECTIVENESS.
--- NOTE | 2018-04-17 22:52 | NUR ---
PATIENT UNABLE TO SLEEP AND REPORTED UNABLE TO RELAX REQUESTED TO HAVE NEEDED CLONAZEPAM AT BEDTIME. WILL MONITOR EFFECTIVENESS.
[2018-04-18] MEDS: TEMAZEPAM 7.5 MG CAPSULE PO PRN (02:36)
--- NOTE | 2018-04-18 02:37 | NUR ---
PATIENT UNABLE TO SLEEP, REQUESTED FOR SLEEP MEDICINE AND MONITOR EFFECTIVENESS
[2018-04-18] MEDS: clonazePAM 0.5 MG TABLET PO PRN (04:09)
--- NOTE | 2018-04-18 04:10 | NUR ---
patient observe and verbalized inability to relax and need clonazepam medication,
[2018-04-18 07:19] LABS: THYROID STIMULATING HORMONE 0.875 uIU/mL (0.358-3.74)
[2018-04-18 08:00] VITALS: BP 134/69
[2018-04-18 08:18] LABS: PHOSPHORUS 3.4 mg/dL (2.5-4.9)
[2018-04-18 08:25] LABS: CALCIUM, SERUM 8.4 mg/dL (8.5-10.1); CREATININE 1.3 mg/dL (0.6-1.3)
[2018-04-18 08:26] LABS: MAGNESIUM 2.1 mg/dL (1.8-2.4)
[2018-04-18] MEDS: BENZTROPINE MESYLATE (1 MG) 1 MG TABLET PO SCH ×2 (08:45→21:23)
[2018-04-18] MEDS: DIVALPROEX SODIUM 500 MG TABLET.DR PO SCH ×2 (08:45→21:23)
[2018-04-18] MEDS: PANTOPRAZOLE 40 MG TABLET.DR PO SCH (08:45)
[2018-04-18] MEDS: NATEGLINIDE 60 MG TABLET PO SCH ×3 (08:46→17:03)
[2018-04-18] MEDS: SENNOSIDES/DOCUSATE SODIUM 1 TAB TABLET PO SCH ×2 (08:46→17:03)
[2018-04-18] MEDS: HALOPERIDOL 5 MG TABLET PO SCH ×2 (08:46→21:23)
[2018-04-18] MEDS: ENOXAPARIN SODIUM 40 MG/0.4 ML DISP.SYRIN SQ SCH (08:47)
[2018-04-18 16:00] VITALS: BP 141/88
--- NOTE | 2018-04-18 19:30 | NUR ---
GPS RN NOTE, RECEIVED PATIENT AWAKE AND IN BED, NO S/S OR COMPLAINTS OF PAIN AT THIS TIME. PATIENT DISPLAYING NO S/S OF APPARENT DISTRESS AT THIS TIME. PATIENT BREATHING IS UNLABORED WITH EQUAL RISE AND FALL OF THE CHEST. PATIENT ALERT AND ORIENTED X 3 WITH A SPO2 95%. PATIENT IS MED COMPLIANT, DISORGANIZED, COOPERATIVE, GUARDED, NEEDS REORIENTATION. PATIENT DENIES SUICIDE IDEATIONS AND HOMICIDAL IDEATIONS AT THIS TIME. PATIENT ASSISTED WITH TURNING AND REPOSITIONING Q2HR AND PRN FOR COMFORT AND CIRCULATION. PATIENT HAS NO NEEDS AT THIS TIME. PATIENT EDUCATED ON THE USE OF THE CALL MURILLO. PATIENT BED SIDE RAILS UP X2 FOR SAFETY, BED IS LOCKED AND LOW WILL CONTINUE TO MONITOR AND MAINTAIN AND MAINTAIN SAFETY.
[2018-04-18 21:22] VITALS: BP 141/77
[2018-04-19] MEDS: clonazePAM 0.5 MG TABLET PO PRN ×2 (00:40→19:56)
[2018-04-19 08:00] VITALS: BP 151/87
[2018-04-19] MEDS: DIVALPROEX SODIUM 500 MG TABLET.DR PO SCH ×2 (08:26→21:13)
[2018-04-19] MEDS: SENNOSIDES/DOCUSATE SODIUM 1 TAB TABLET PO SCH ×2 (08:26→16:37)
[2018-04-19] MEDS: BENZTROPINE MESYLATE (1 MG) 1 MG TABLET PO SCH ×2 (08:26→21:13)
[2018-04-19] MEDS: NATEGLINIDE 60 MG TABLET PO SCH ×3 (08:26→16:36)
[2018-04-19] MEDS: PANTOPRAZOLE 40 MG TABLET.DR PO SCH (08:26)
[2018-04-19] MEDS ORDERED: hydrALAZINE HCL 25 MG TABLET PO PRN (09:00)
[2018-04-19] MEDS: ENOXAPARIN SODIUM 40 MG/0.4 ML DISP.SYRIN SQ SCH (09:00)
[2018-04-19] MEDS: HALOPERIDOL 5 MG TABLET PO SCH ×2 (09:09→21:13)
--- NOTE | 2018-04-19 09:46 | NUR ---
KISHOR contacted [facility]; [address] [facility] [address]; to verify if they had care home services. I spoke with Desiree and she stated that [facility] does not offer care home/homeless services. Desiree provided KISHOR with an alternative resource the [facility] [phone].
--- NOTE | 2018-04-19 09:57 | NUR ---
KISHOR contacted [facility] Address: [address] [place] [id number] to inquire about homeless services/assisted. Jason-case management specialist stated that [facility] only offered drop in services for homeless individuals but they did not provide assisted. Jason stated that there are no homeless shelters in [place].
--- NOTE | 2018-04-19 09:58 | NUR ---
KISHOR spoke with Janey from [facility] [phone] after pt contacted her stating that was her manager of case and she provided social science research assistant with contact information for the [facility] [phone] for referral after discharge. Janey stated many hospitals use that service for stabilization after hospitalization.
--- NOTE | 2018-04-19 10:01 | NUR ---
KISHOR contacted [facility] [phone] to inquire on services. Patricia stated that KISHOR could refer pt by completing a referral packet and faxing it back then the packet would be reviewed packet and conducting a phone interview with pt for eligibility
[2018-04-19 15:58] VITALS: BP 128/71
--- NOTE | 2018-04-19 19:30 | NUR ---
GPS RN NOTE, RECEIVED PATIENT AWAKE AND IN BED, NO S/S OR COMPLAINTS OF PAIN AT THIS TIME. PATIENT DISPLAYING NO S/S OF APPARENT DISTRESS AT THIS TIME. PATIENT BREATHING IS UNLABORED WITH EQUAL RISE AND FALL OF THE CHEST. PATIENT ALERT AND ORIENTED X 3 WITH A SPO2 99%. PATIENT IS MED COMPLIANT, DISORGANIZED, COOPERATIVE, GUARDED, NEEDS REORIENTATION. PATIENT DENIES SUICIDE IDEATIONS AND HOMICIDAL IDEATIONS AT THIS TIME. PATIENT ASSISTED WITH TURNING AND REPOSITIONING Q2HR AND PRN FOR COMFORT AND CIRCULATION. PATIENT HAS NO NEEDS AT THIS TIME. PATIENT EDUCATED ON THE USE OF THE CALL MURILLO. PATIENT BED SIDE RAILS UP X2 FOR SAFETY, BED IS LOCKED AND LOW WILL CONTINUE TO MONITOR AND MAINTAIN AND MAINTAIN SAFETY.
--- NOTE | 2018-04-19 19:58 | NUR ---
1957 C/O ANXIETY, PT. REQUESTING KLONOPIN. MEDS GIVEN PER ORDER. WILL REEVALUATE PT FOR S/S PFANXIETY. WILL CONTINUE TO MONITOR.
[2018-04-19 20:00] VITALS: BP 133/78
[2018-04-20] MEDS: clonazePAM 0.5 MG TABLET PO PRN ×2 (00:58→05:13)
--- NOTE | 2018-04-20 00:59 | NUR ---
2259 C/O ANXIETY, PT. REQUESTING KLONOPIN. MEDS GIVEN PER ORDER. WILL REEVALUATE PT FOR S/S ANXIETY. WILL CONTINUE TO MONITOR
[2018-04-20] MEDS: TEMAZEPAM 7.5 MG CAPSULE PO PRN ×2 (02:12→23:33)
--- NOTE | 2018-04-20 02:12 | NUR ---
GPS RN NOTE, PATIENT HAS A COMPLAINT OF NOT BEING ABLE TO SLEEP AND IS REQUESTING RESTORIL AT THIS TIME. PATIENT VITAL SIGNS ARE STABLE. GAVE RESTORIL 7.5MG PO HS ORDERED. WILL REASSESS FOR INSOMNIA AND I WILL CONTINUE TO MONITOR THIS PATIENT.
[2018-04-20 08:00] VITALS: BP 130/69
[2018-04-20] MEDS: DIVALPROEX SODIUM 500 MG TABLET.DR PO SCH ×2 (08:12→22:07)
[2018-04-20] MEDS: NATEGLINIDE 60 MG TABLET PO SCH ×3 (08:13→16:31)
[2018-04-20] MEDS: HALOPERIDOL 5 MG TABLET PO SCH ×2 (08:15→22:08)
[2018-04-20] MEDS: PANTOPRAZOLE 40 MG TABLET.DR PO SCH (08:16)
[2018-04-20] MEDS: SENNOSIDES/DOCUSATE SODIUM 1 TAB TABLET PO SCH ×2 (08:16→16:31)
[2018-04-20] MEDS: BENZTROPINE MESYLATE (1 MG) 1 MG TABLET PO SCH ×2 (08:16→22:08)
[2018-04-20] MEDS: ENOXAPARIN SODIUM 40 MG/0.4 ML DISP.SYRIN SQ SCH (09:00)
--- NOTE | 2018-04-20 14:36 | NUR ---
KISHOR faxed referral packet to [facility] [address] [address] P: F: .
[2018-04-20 16:00] VITALS: BP 106/65
[2018-04-20 20:00] VITALS: BP 135/77
[2018-04-21] MEDS: clonazePAM 0.5 MG TABLET PO PRN (02:39)
--- NOTE | 2018-04-21 02:40 | NUR ---
GPS NOTE C/O " I FEEL ANXIOUS AND I CAN'T SLEEP. ITS BEEN MORE THEN FOUR HOURS SINCE MY KLONOPIN. CAN I HAVE IT?" PER PT REQUEST CLONAZEPAM .5MG GIVEN ORDERED. WILL CONTINUE TO MONITOR FOR SAFETY.
[2018-04-21 08:04] VITALS: BP 125/73
[2018-04-21] MEDS: PANTOPRAZOLE 40 MG TABLET.DR PO SCH (08:36)
[2018-04-21] MEDS: ENOXAPARIN SODIUM 40 MG/0.4 ML DISP.SYRIN SQ SCH (09:00)
[2018-04-21] MEDS: DIVALPROEX SODIUM 500 MG TABLET.DR PO SCH ×2 (09:10→21:12)
[2018-04-21] MEDS: HALOPERIDOL 5 MG TABLET PO SCH ×2 (09:10→21:12)
[2018-04-21] MEDS: NATEGLINIDE 60 MG TABLET PO SCH ×3 (09:10→16:28)
[2018-04-21] MEDS: BENZTROPINE MESYLATE (1 MG) 1 MG TABLET PO SCH ×2 (09:10→21:12)
[2018-04-21] MEDS: SENNOSIDES/DOCUSATE SODIUM 1 TAB TABLET PO SCH ×2 (09:10→16:28)
--- NOTE | 2018-04-21 09:40 | NUR ---
CIRILO FROM [facility] SAID THAT PT. CAN NOT COME IN WITHOUT MEDS. DR. SANTIAGO NOTIFIED AND TO KEEP PT. UNTIL MONDAY.
[2018-04-21 15:41] VITALS: BP 123/70
[2018-04-21 20:00] VITALS: BP 113/68
[2018-04-22] MEDS: clonazePAM 0.5 MG TABLET PO PRN ×2 (00:21→23:25)
[2018-04-22] MEDS: TEMAZEPAM 7.5 MG CAPSULE PO PRN (01:23)
[2018-04-22 08:00] VITALS: BP 137/70
[2018-04-22] MEDS: HALOPERIDOL 5 MG TABLET PO SCH ×2 (08:43→21:24)
[2018-04-22] MEDS: PANTOPRAZOLE 40 MG TABLET.DR PO SCH (08:43)
[2018-04-22] MEDS: DIVALPROEX SODIUM 500 MG TABLET.DR PO SCH ×2 (08:44→21:24)
[2018-04-22] MEDS: BENZTROPINE MESYLATE (1 MG) 1 MG TABLET PO SCH ×2 (08:44→21:24)
[2018-04-22] MEDS: ENOXAPARIN SODIUM 40 MG/0.4 ML DISP.SYRIN SQ SCH (08:44)
[2018-04-22] MEDS: NATEGLINIDE 60 MG TABLET PO SCH ×3 (08:44→17:22)
[2018-04-22] MEDS: SENNOSIDES/DOCUSATE SODIUM 1 TAB TABLET PO SCH ×2 (08:44→17:22)
[2018-04-22 16:00] VITALS: BP 135/73
[2018-04-22 21:45] VITALS: BP 117/77
[2018-04-23] MEDS: PANTOPRAZOLE 40 MG TABLET.DR PO SCH (07:22)
[2018-04-23 08:08] VITALS: BP 142/77
[2018-04-23] MEDS: NATEGLINIDE 60 MG TABLET PO SCH ×3 (08:19→16:30)
[2018-04-23] MEDS: DIVALPROEX SODIUM 500 MG TABLET.DR PO SCH ×2 (08:19→20:31)
[2018-04-23] MEDS: SENNOSIDES/DOCUSATE SODIUM 1 TAB TABLET PO SCH ×2 (08:19→16:29)
[2018-04-23] MEDS: ENOXAPARIN SODIUM 40 MG/0.4 ML DISP.SYRIN SQ SCH (08:19)
[2018-04-23] MEDS: BENZTROPINE MESYLATE (1 MG) 1 MG TABLET PO SCH ×2 (08:20→20:31)
[2018-04-23] MEDS: HALOPERIDOL 5 MG TABLET PO SCH ×2 (09:50→20:36)
[2018-04-23 16:09] VITALS: BP 144/76
[2018-04-23 19:42] VITALS: BP 132/82
[2018-04-24] MEDS: clonazePAM 0.5 MG TABLET PO PRN ×2 (01:46→09:58)
[2018-04-24] MEDS: PANTOPRAZOLE 40 MG TABLET.DR PO SCH (07:39)
[2018-04-24 08:00] VITALS: BP 124/67
[2018-04-24] MEDS: BENZTROPINE MESYLATE (1 MG) 1 MG TABLET PO SCH (08:33)
[2018-04-24] MEDS: DIVALPROEX SODIUM 500 MG TABLET.DR PO SCH (08:33)
[2018-04-24] MEDS: SENNOSIDES/DOCUSATE SODIUM 1 TAB TABLET PO SCH (08:33)
[2018-04-24] MEDS: NATEGLINIDE 60 MG TABLET PO SCH (08:33)
[2018-04-24] MEDS: HALOPERIDOL 5 MG TABLET PO SCH (09:09)
--- NOTE | 2018-04-24 11:00 | NUR ---
SW attempted to contact Pts Mother [phone] to notify of discharge plan. Pts mother picked up the phone and hung up. SW attempted a second time and left a voicemail message notifying pts mother of discharge plan and the possibility of pts returning to her home. SW notified pts mother that pt was given 3 bus tokens and given referral to shelters.
--- NOTE | 2018-04-24 11:11 | NUR ---
SW spoke with Patricia Sanabria from [address] [address] P: F: . Patricia informed SW that she was unable to accept pt due to his medical coverage and medications. Patricia stated that pt needed to arrive at the facility with medication on hand. SW spoke to pt and and he informed SW that he had to pay for his medications and he had no money therefore he could not pay for them. Pt stated that eh no longer wanted to go to [facility].
--- NOTE | 2018-04-24 11:17 | NUR ---
DISCHARGE NOTE: Pt is homeless and was given referrals to [facility] [address] [facility] [address] , [facility] [address] [facility] [address] , and [facility] [address] [place] [address] . Pt was given 3 bus tokens. Pts Mother was contacted [phone] and was notified of discharge plan via voicemail message. Pt was calm and cooperative and agreed to discharge plan. Pt denied suicidal/homicidal ideations and denied visual/auditory hallucinations. Pt will schedule follow up appointments with Industrial Service Technician: Dr Mauri Srinivasan [address] [facility] [address] and Psychiatrist: Dr Bolanos [address] [facility] [facility] [address] . The multidisciplinary exitcare form was done, printed, signed, and given to the patient.
--- NOTE | 2018-04-24 12:26 | NUR ---
PATIENT LEFT THE UNIT AT 1220, ESCORTED BY JCARLOS, TO THE BUS STOP. THE PATIENT IS ALERT AND ORIENTED X 3. PATIENT DENIES SI/HI DURING DISCHARGE. DENIES COMMAND HALLUCINATIONS, AH, AND VH. PAMELA GAVE DISCHARGE ORDER, DISCONTINUE HOLD, AND GAVE PRESCRIPTION. DREDGE PIPEMAN MADE AWARE OF DISCHARGE AND AGREES. BELONGINGS GIVEN TO PATIENT. EXIT CARE PAPERS SIGNED AND EXPLAINED TO THE PATIENT BEFORE LEAVING THE UNIT. SKIN ASSESSMENT CLEAR AND INTACT. BUS TOKENS GIVEN TO PATIENT.
== END 2018-04-24 16:39 | disposition home or self-care (01) | DRG 885 ==
LOC: GPS 18:28
PROVIDERS: ADMIT Psychiatry & Neurology Psychiatry; ATTEND Nurse Practitioner Acute Care
DX: F20.0 Paranoid schizophrenia (principal); N18.9 Chronic kidney disease, unspecified; E11.22 Type 2 diabetes mellitus with diabetic chronic kidney disease; E78.5 Hyperlipidemia, unspecified; F41.9 Anxiety disorder, unspecified; I10 Essential (primary) hypertension; I25.10 Atherosclerotic heart disease of native coronary artery without angina pectoris; G31.84 Mild cognitive impairment of uncertain or unknown etiology; F31.9 Bipolar disorder, unspecified; G47.00 Insomnia, unspecified; I12.9 Hypertensive chronic kidney disease with stage 1 through stage 4 chronic kidney disease, or unspecified chronic kidney disease; J44.9 Chronic obstructive pulmonary disease, unspecified; F17.210 Nicotine dependence, cigarettes, uncomplicated; F12.90 Cannabis use, unspecified, uncomplicated; Z91.19 Patient's noncompliance with other medical treatment and regimen
CPT/HCPCS: 36415; 71045-TC; 80048-TC; 80061-TC; 80164-TC; 82565-TC; 83735-TC; 84100-TC; 84443-TC; 85025-TC; 87081-TC; J1650; Q0163